=== PATIENT | female | born 1975 | race Caucasian/White ===

== ENCOUNTER 2018-08-19 11:20 | Emergency (ER) | payer OTHER, SELFPAY ==
[2018-08-19 11:24] VITALS: BP 122/85; PULSE 91; RESP 20; TEMP 36.8; O2SAT 99; BMI 31.9
--- NOTE | 2018-08-19 12:14 | ED.WOUNDLAC ---
HPI - Wound/Laceration <FRAN Dumas - Last Filed: 08/19/18 13:31> General Chief Complaint: Wound/Laceration Stated Complaint: CUT RIGHT THUMB Time Seen by Provider: 08/19/18 12:06 Source: patient Mode of arrival: ambulatory Limitations: no limitations History of Present Illness HPI narrative: Patient is a 42-year-old female nonsmoker with a history of hypothyroidism who presents with the chief complaint of a laceration to her right thumb. She was cutting with a [employer] cutter and sliced part of her thumb. She states that she is not sure if there is anything to suture, as she ?took a scoop out.? She does not know when her last tetanus was. She states she has full range of motion with the right thumb. She flushed it out with water after happened. Patient is right-hand dominant. Extremity Location: Left: arm Related Data Previous Rx's Medication Instructions Recorded escitalopram 10 mg tablet 10 mg PO QDAY #90 tab 04/23/18 levothyroxine 88 mcg tablet 88 mcg PO QAM #90 tab-cap 04/23/18 Allergies Allergy/AdvReac Type Severity Reaction Status Date / Time No Known Allergies Allergy Uncoded 08/19/18 11:29 Review of Systems <FRAN Dumas - Last Filed: 08/19/18 13:31> Review of Systems GENERAL: Denies chills, fatigue, malaise, fever, sweats. HEENT: Denies sinus pain, ear pain, sore throat, difficulty swallowing, dizziness. RESPIRATORY: Denies dyspnea, cough, wheezing, hemoptysis, sputum. CARDIOVASCULAR: Denies chest pain, palpitations, orthopnea, edema, GASTROINTESTINAL: Denies nausea, vomiting, abdominal pain, diarrhea, constipation, melena. : Denies dysuria, frequency, incontinence, hematuria, urinary retention. MUSCULOSKELETAL: denies weakness, joint pain, or bony pain SKIN: See HPI NEUROLOGIC: Denies weakness, headache, numbness, change in speech, confusion, seizures, incoordination. PSYCHIATRIC: No concerning psychosocial issues. 12 point review of systems is negative except for those stated above Exam <THOMAS Dumas - Last Filed: 08/19/18 13:31> Narrative Exam Narrative: GENERAL: This is a well-nourished, well-developed patient, no acute distress HEAD: Atraumatic. Normocephalic. No temporal or scalp tenderness. EYES: Pupils equal round and reactive. Extraocular motions intact. No scleral icterus. No injection or drainage. ENT: Nose without bleeding, purulent drainage or septal hematoma. Throat without erythema, tonsillar hypertrophy or exudate. Uvula midline. Airway patent. NECK: Trachea midline. No JVD or lymphadenopathy. Supple, nontender, no meningeal signs. CARDIOVASCULAR: Regular rate and rhythm without murmurs, gallops, or rubs. RESPIRATORY: Clear to auscultation. Breath sounds equal bilaterally. No wheezes, rales, or rhonchi. GASTROINTESTINAL: Abdomen soft, non-tender, nondistended. No hepato-splenomegaly, or palpable masses. No guarding. EXTREMITIES: Full range of motion of right hand. Capillary refill less than 2 sec right thumb. Pulse motor sensory intact rhythm. BACK: Nontender without deformity or crepitance. No flank tenderness. NEURO: AOx3. SKIN: 0.25 cm avulsion to tip of right thumb. No nail involvement. Bleeding is controlled. Initial Vital Signs Initial Vital Signs: Vital Signs Temperature 98.3 F 08/19/18 11:24 Pulse Rate 91 H 08/19/18 11:24 Respiratory Rate 20 08/19/18 11:24 Blood Pressure 122/85 08/19/18 11:24 Pulse Oximetry 99 08/19/18 11:24 <Sobeida Isaac DO - Last Filed: 08/20/18 07:36> Initial Vital Signs Initial Vital Signs: Vital Signs Temperature 98.3 F 08/19/18 11:24 Pulse Rate 91 H 08/19/18 11:24 Respiratory Rate 20 08/19/18 11:24 Blood Pressure 122/85 08/19/18 11:24 Pulse Oximetry 99 08/19/18 11:24 Procedures <FRAN Dumas - Last Filed: 08/19/18 13:31> Laceration Repair Laceration 1: Site: upper extremity Side (If applicable): right Size (cm): 0.25 Description: other (avulsion) Depth: simple, single layer Pre-repair: wound explored, irrigated extensively and deep structures intact Skin layer closed with: other (surgicel and pressure dressing ) Course <THOMAS DumasBC - Last Filed: 08/19/18 13:31> Orders Ordered: Discontinued Medications Diphtheria/Tetanus/Acell Pertussis (Adacel) 0.5 ml IM .ONCE ONE Stop: 08/19/18 12:14 Last Admin: 08/19/18 12:46 Dose: 0.5 ml Ketorolac Tromethamine (Toradol) 60 mg IM NOW ONE Stop: 08/19/18 12:14 Last Admin: 08/19/18 12:47 Dose: 60 mg Vital Signs - 8 hr 08/19/18 11:24 08/19/18 13:07 Temperature 98.3 F Pulse Rate 91 H 69 Respiratory Rate 20 16 Blood Pressure 122/85 Blood Pressure [Left Arm] 127/91 H Pulse Oximetry 99 98 <Sobeida Isaac DO - Last Filed: 08/20/18 07:36> Orders Ordered: Discontinued Medications Diphtheria/Tetanus/Acell Pertussis (Adacel) 0.5 ml IM .ONCE ONE Stop: 08/19/18 12:14 Last Admin: 08/19/18 12:46 Dose: 0.5 ml Ketorolac Tromethamine (Toradol) 60 mg IM NOW ONE Stop: 08/19/18 12:14 Last Admin: 08/19/18 12:47 Dose: 60 mg Vital Signs - 8 hr 08/19/18 11:24 08/19/18 13:07 Temperature 98.3 F Pulse Rate 91 H 69 Respiratory Rate 20 16 Blood Pressure 122/85 Blood Pressure [Left Arm] 127/91 H Pulse Oximetry 99 98 MDM - Wound/Laceration <SHANIKA Dumas-BC - Last Filed: 08/19/18 13:31> MDM Narrative Medical decision making narrative: Patient presents with a chief complaint of a laceration to her right thumb. She did not know when her last tetanus was, so her tetanus was updated accordingly. The wound was cleansed with Hibiclens and water. Given the avulsion nature of the wound, I was not able to perform a closure. However bleeding was controlled and the wound was closed with Surgicel and a pressure dressing. Discussed at length with patient return precautions, monitor for circulation thumb as well as monitoring for signs of infection including redness pus etc. Patient had no questions or concerns upon discharge. Discharge Plan Departure Patient Disposition: Home Clinical Impression: Avulsion of skin Discharge Date/Time: 08/19/18 13:07 Interventions: ED Discharge Assessment Last Done: 08/19/18 13:06 Instructions: DI for Avulsion Laceration (Not Requiring Sutures), DI for Minor Laceration Activity Restrictions/Additional Instructions: Please monitor your wound for signs and symptoms of infection including redness, pus and fever. Please follow-up if any of these occur. Please do not submerge her hand in dirty water, pool water disorder etc as this increases her chance of infection. Please loosen the pressure wrap if your finger becomes cold in be evaluated immediately if you have any concerns about circulation. Prescriptions: No Action escitalopram oxalate [Lexapro] 10 mg tablet 10 mg PO QDAY Qty: 90 RF: 3 levothyroxine 88 mcg tablet 88 mcg PO QAM Qty: 90 RF: 1 Referrals: Juli Benavides ARNP [Primary Care Provider] - <Sobeida Isaac DO - Last Filed: 08/20/18 07:36> Cosign ED Attending Rosy Attestation: I was immediately available in the department for consultation. Documentation has been reviewed. I agree with assessment and plan.
--- NOTE | 2018-08-19 12:18 | ED_ITS ---
HPI - Wound/Laceration <FRAN Dumas - Last Filed: 08/19/18 13:31> General Chief Complaint: Wound/Laceration Stated Complaint: CUT RIGHT THUMB Time Seen by Provider: 08/19/18 12:06 Source: patient Mode of arrival: ambulatory Limitations: no limitations History of Present Illness HPI narrative: Patient is a 42-year-old female nonsmoker with a history of hypothyroidism who presents with the chief complaint of a laceration to her right thumb. She was cutting with a [employer] cutter and sliced part of her thumb. She states that she is not sure if there is anything to suture, as she ? took a scoop out.? She does not know when her last tetanus was. She states she has full range of motion with the right thumb. She flushed it out with water after happened. Patient is right-hand dominant. Extremity Location: Left: arm Related Data Previous Rx's Medication Instructions Recorded escitalopram 10 mg tablet 10 mg PO QDAY #90 tab 04/23/18 levothyroxine 88 mcg tablet 88 mcg PO QAM #90 tab-cap 04/23/18 Allergies Allergy/AdvReac Type Severity Reaction Status Date / Time No Known Allergies Allergy Uncoded 08/19/18 11:29 Review of Systems <FRAN Dumas - Last Filed: 08/19/18 13:31> Review of Systems GENERAL: Denies chills, fatigue, malaise, fever, sweats. HEENT: Denies sinus pain, ear pain, sore throat, difficulty swallowing, dizziness. RESPIRATORY: Denies dyspnea, cough, wheezing, hemoptysis, sputum. CARDIOVASCULAR: Denies chest pain, palpitations, orthopnea, edema, GASTROINTESTINAL: Denies nausea, vomiting, abdominal pain, diarrhea, constipation, melena. : Denies dysuria, frequency, incontinence, hematuria, urinary retention. MUSCULOSKELETAL: denies weakness, joint pain, or bony pain SKIN: See HPI NEUROLOGIC: Denies weakness, headache, numbness, change in speech, confusion, seizures, incoordination. PSYCHIATRIC: No concerning psychosocial issues. 12 point review of systems is negative except for those stated above Exam <THOMAS Dumas - Last Filed: 08/19/18 13:31> Narrative Exam Narrative: GENERAL: This is a well-nourished, well-developed patient, no acute distress HEAD: Atraumatic. Normocephalic. No temporal or scalp tenderness. EYES: Pupils equal round and reactive. Extraocular motions intact. No scleral icterus. No injection or drainage. ENT: Nose without bleeding, purulent drainage or septal hematoma. Throat without erythema, tonsillar hypertrophy or exudate. Uvula midline. Airway patent. NECK: Trachea midline. No JVD or lymphadenopathy. Supple, nontender, no meningeal signs. CARDIOVASCULAR: Regular rate and rhythm without murmurs, gallops, or rubs. RESPIRATORY: Clear to auscultation. Breath sounds equal bilaterally. No wheezes , rales, or rhonchi. GASTROINTESTINAL: Abdomen soft, non-tender, nondistended. No hepato-splenomegaly , or palpable masses. No guarding. EXTREMITIES: Full range of motion of right hand. Capillary refill less than 2 sec right thumb. Pulse motor sensory intact rhythm. BACK: Nontender without deformity or crepitance. No flank tenderness. NEURO: AOx3. SKIN: 0.25 cm avulsion to tip of right thumb. No nail involvement. Bleeding is controlled. Initial Vital Signs Initial Vital Signs: Vital Signs Temperature 98.3 F 08/19/18 11:24 Pulse Rate 91 H 08/19/18 11:24 Respiratory Rate 20 08/19/18 11:24 Blood Pressure 122/85 08/19/18 11:24 Pulse Oximetry 99 08/19/18 11:24 <Sobeida Isaac DO - Last Filed: 08/20/18 07:36> Initial Vital Signs Initial Vital Signs: Vital Signs Temperature 98.3 F 08/19/18 11:24 Pulse Rate 91 H 08/19/18 11:24 Respiratory Rate 20 08/19/18 11:24 Blood Pressure 122/85 08/19/18 11:24 Pulse Oximetry 99 08/19/18 11:24 Procedures <FRAN Dumas - Last Filed: 08/19/18 13:31> Laceration Repair Laceration 1: Site: upper extremity Side (If applicable): right Size (cm): 0.25 Description: other (avulsion) Depth: simple, single layer Pre-repair: wound explored, irrigated extensively and deep structures intact Skin layer closed with: other (surgicel and pressure dressing ) Course <THOMAS DumasBC - Last Filed: 08/19/18 13:31> Orders Ordered: Discontinued Medications Diphtheria/Tetanus/Acell Pertussis (Adacel) 0.5 ml IM .ONCE ONE Stop: 08/19/18 12:14 Last Admin: 08/19/18 12:46 Dose: 0.5 ml Ketorolac Tromethamine (Toradol) 60 mg IM NOW ONE Stop: 08/19/18 12:14 Last Admin: 08/19/18 12:47 Dose: 60 mg Vital Signs - 8 hr 08/19/18 11:24 08/19/18 13:07 Temperature 98.3 F Pulse Rate 91 H 69 Respiratory Rate 20 16 Blood Pressure 122/85 Blood Pressure [Left Arm] 127/91 H Pulse Oximetry 99 98 <Sobeida Isaac DO - Last Filed: 08/20/18 07:36> Orders Ordered: Discontinued Medications Diphtheria/Tetanus/Acell Pertussis (Adacel) 0.5 ml IM .ONCE ONE Stop: 08/19/18 12:14 Last Admin: 08/19/18 12:46 Dose: 0.5 ml Ketorolac Tromethamine (Toradol) 60 mg IM NOW ONE Stop: 08/19/18 12:14 Last Admin: 08/19/18 12:47 Dose: 60 mg Vital Signs - 8 hr 08/19/18 11:24 08/19/18 13:07 Temperature 98.3 F Pulse Rate 91 H 69 Respiratory Rate 20 16 Blood Pressure 122/85 Blood Pressure [Left Arm] 127/91 H Pulse Oximetry 99 98 MDM - Wound/Laceration <SHANIKA Dumas-BC - Last Filed: 08/19/18 13:31> MDM Narrative Medical decision making narrative: Patient presents with a chief complaint of a laceration to her right thumb. She did not know when her last tetanus was, so her tetanus was updated accordingly. The wound was cleansed with Hibiclens and water. Given the avulsion nature of the wound, I was not able to perform a closure. However bleeding was controlled and the wound was closed with Surgicel and a pressure dressing. Discussed at length with patient return precautions, monitor for circulation thumb as well as monitoring for signs of infection including redness pus etc. Patient had no questions or concerns upon discharge. Discharge Plan Departure Patient Disposition: Home Clinical Impression: Avulsion of skin Discharge Date/Time: 08/19/18 13:07 Interventions: ED Discharge Assessment Last Done: 08/19/18 13:06 Instructions: DI for Avulsion Laceration (Not Requiring Sutures), DI for Minor Laceration Activity Restrictions/Additional Instructions: Please monitor your wound for signs and symptoms of infection including redness , pus and fever. Please follow-up if any of these occur. Please do not submerge her hand in dirty water, pool water disorder etc as this increases her chance of infection. Please loosen the pressure wrap if your finger becomes cold in be evaluated immediately if you have any concerns about circulation. Prescriptions: No Action escitalopram oxalate [Lexapro] 10 mg tablet 10 mg PO QDAY Qty: 90 RF: 3 levothyroxine 88 mcg tablet 88 mcg PO QAM Qty: 90 RF: 1 Referrals: Juli Benavides ARNP [Primary Care Provider] - <Sobeida Isaac DO - Last Filed: 08/20/18 07:36> Cosign ED Attending Rosy Attestation: I was immediately available in the department for consultation. Documentation has been reviewed. I agree with assessment and plan.
[2018-08-19] MEDS: TET,DIPH,PERTUSS(ACELL),VAC/PF 0.5 ML SYRINGE IM (12:46)
[2018-08-19] MEDS: KETOROLAC 60 MG/2 ML VIAL IM (12:47)
[2018-08-19 13:07] VITALS: BP 127/91; PULSE 69; RESP 16; O2SAT 98
== END 2018-08-19 13:07 | disposition home or self-care (01) ==
PROVIDERS: Emergency Provider Nurse Practitioner Family; PCP Internal Medicine
DX: S61.011A Laceration without foreign body of right thumb without damage to nail, initial encounter (principal); W26.8XXA Contact with other sharp object(s), not elsewhere classified, initial encounter
CPT/HCPCS: 90471; 96372; 99283; 90715; J1885

== ENCOUNTER 2019-10-28 14:55 | Emergency (ER) | payer OTHER, SELFPAY ==
[2019-10-28 15:04] VITALS: BP 119/78; PULSE 109; RESP 20; TEMP 36.8; O2SAT 98
--- NOTE | 2019-10-28 15:13 | DI.US.S_ITS ---
PROCEDURE: US PERIPH VENOUS LOW EXTREM LT INDICATIONS: LEFT LOWER EXTREMITY EDEMA TECHNIQUE: Real-time imaging, as well as color and pulse Doppler interrogation, were performed of the lower extremity deep veins from the inguinal ligament to the popliteal fossa. COMPARISON: None. FINDINGS: The common femoral, femoral and popliteal veins are normally compressible, and free of intraluminal thrombus. Color and pulse Doppler demonstrate normal phasic intraluminal flow. There is normal augmentation response to distal compression maneuver. IMPRESSION: No evidence of left lower extremity deep vein thrombosis. Dictated by: Stevie White M.D. on 10/28/2019 at 15:41 Approved by: Stevie White M.D. on 10/28/2019 at 15:42
--- NOTE | 2019-10-28 15:18 | ED_ITS ---
HPI - Extremity Injury (Lower) <NERY Blanca - Last Filed: 10/28/19 20:38> General Chief Complaint: Extremity Injury, Lower Stated Complaint: States fx left knee, thinks has a blood clot now Time Seen by Provider: 10/28/19 15:01 Source: patient Mode of arrival: Wheelchair History of Present Illness HPI Narrative: 43yo female presents emergency department complaining of left calf pain for the past 24 hours. Patient states she fell 5 days ago and fractured her left patella. She is supposed to have surgery next week. However, she has had decreased movement throughout the past few days due to pain, she noticed increased swelling in her calf is worried about a blood clot. Patient states the pain is a dull aching 4/10 notice slightly worse with palpation. She also noted that she had a fever of 100F today, temperature was taken orally, which she was unsure if this was due to sitting in the sun. She denies any history of blood clots, not currently taking any blood thinners. Patient has been seen by Dr. Barrett. She denies any cough, rhinorrhea, sore throat, ear pain, chest pain, shortness of breath, nausea, vomiting, diarrhea, abdominal pain, dizziness, lacerations, or other concerns. Related Data Home Medications Medication Instructions Recorded Confirmed escitalopram oxalate [Lexapro] 10 mg PO QPM 10/28/19 10/28/19 hydromorphone 2 mg PO Q4-6H PRN 10/28/19 10/28/19 Previous Rx's Medication Instructions Recorded levothyroxine 88 mcg tablet 88 mcg PO QAM #90 tab-cap 04/23/18 Allergies Allergy/AdvReac Type Severity Reaction Status Date / Time No Known Drug Allergies Allergy Verified 10/28/19 15:43 Review of Systems <NERY Blanca - Last Filed: 10/28/19 20:38> Review of Systems Narrative: REVIEW OF SYSTEMS: GENERAL: Denies chills. HENT: No head trauma. EYES: No double vision or vision loss. CARDIOVASCULAR: No chest pain or syncope. RESPIRATORY: No shortness of breath or cough. GASTROINTESTINAL: No nausea, vomiting, diarrhea, or constipation. MUSCULOSKELETAL: Complains of left calf pain, see HPI. INTEGUMENTARY: No rash, lesions, or pruritus. NEURO: No numbness, tingling. PSYCH: No behavior or mood changes. Patient History <NERY Blanca - Last Filed: 10/28/19 20:38> Medical History Acne (Chronic ~1989) Anemia (Chronic) Chicken pox (Resolved ~1981) Eczema (Chronic ~1975) Hypothyroidism (Chronic) Family History Father Age: 67 Morbid obesity Hypertension Grandmother Hypertension Mother Age: 67 High cholesterol Hypothyroidism Grandfather Stroke Social History Smoking Status: Never smoker alcohol intake: current Smoking Status: Never smoker alcohol intake frequency: a few times a month Substance Use Type: does not use Exam <NERY Blanca - Last Filed: 10/28/19 20:38> Initial Vital Signs Initial Vital Signs: Vital Signs Temperature 98.2 F 10/28/19 15:04 Pulse Rate 109 H 10/28/19 15:04 Respiratory Rate 20 10/28/19 15:04 Blood Pressure 119/78 10/28/19 15:04 Pulse Oximetry 98 10/28/19 15:04 PHYSICAL EXAMINATION: GENERAL: Well groomed, alert, and cooperative. Answers questions promptly and appropriately. Vital signs noted. HENT: Normocephalic, atraumatic. EYES: Symmetrical, sclera white, no periorbital swelling. CARDIOVASCULAR: S1 and S2 sounds normal. Regular rate and rhythm, no murmurs, clicks, or bruits. No pedal edema. RESPIRATORY: Normal respiratory rate, trachea midline, airway patent. No stridor, nasal flaring or accessory muscle use. Lungs are clear in all vasquez. MUSCULOSKELETAL: Deep purple ecchymosis noted to left patellar region, slight tenderness with palpation of left calf, compartments soft. Pedal pulses 2+ and intact bilaterally, cap refill to left toes <2 seconds. No pain with flexion of foot. Normal gait and coordination. Equal tone and mass bilaterally. EXTREMITIES: CMS intact. SKIN: Warm, dry, soft, appropriate color for ethnicity. No lesions, rashes, or wounds. NEURO: Alert and Oriented X 3. No sensory deficits. PSYCH: Appropriate affect and mood. <DO Eleni Castro Last Filed: 10/29/19 07:03> Initial Vital Signs Initial Vital Signs: Vital Signs Temperature 98.2 F 10/28/19 15:04 Pulse Rate 109 H 10/28/19 15:04 Respiratory Rate 20 10/28/19 15:04 Blood Pressure 119/78 10/28/19 15:04 Pulse Oximetry 98 10/28/19 15:04 Course <NERY Blanca - Last Filed: 10/28/19 20:38> Course Course Narrative: Patient reported decreased pain throughout the emergency department stay. Orders Ordered: ED Orders 10/28/19 15:13 US periph venous low extrem lt Stat 10/28/19 15:48 D Dimer Stat Vital Signs Vital signs: Vital Signs - 8 hr 10/28/19 15:04 10/28/19 16:25 Temperature 98.2 F Pulse Rate 109 H 89 Respiratory Rate 20 19 Blood Pressure 119/78 Blood Pressure [Left Arm] 128/77 Pulse Oximetry 98 100 <Aaron Sung DO - Last Filed: 10/29/19 07:03> Orders Ordered: ED Orders 10/28/19 15:13 US perip venous low extrem lt Stat 10/28/19 15:48 D Dimer Stat Vital Signs Vital signs: Vital Signs - 8 hr 10/28/19 15:04 10/28/19 16:25 Temperature 98.2 F Pulse Rate 109 H 89 Respiratory Rate 20 19 Blood Pressure 119/78 Blood Pressure [Left Arm] 128/77 Pulse Oximetry 98 100 MDM - Extremity Injury (Lower) <NERY Blanca - Last Filed: 10/28/19 20:38> Medical Records Attestation: I reviewed the patient's medical records. Lab Data Attestation: I reviewed the patient's lab results. Labs: Lab Results 10/28/19 Range/Units 15:48 D-Dimer 1910 H (<230) ng/mL Imaging Data US - DVT: Radiologist's Impression: [address] [address] Ultrasound Report Signed Patient: Malinda Camara KMR#: [id number] : 1975Acct:[id number] Age/Sex: 43 / FDate of Service: 10/28/19 Loc: ED Accession Number: [id number] Procedure: US periph venous low extrem lt Ordering Provider: Nilsa Garza PROCEDURE: PERIP VENOUS LOW EXTREM LT INDICATIONS: LEFT LOWER EXTREMITY EDEMA TECHNIQUE: Real-time imaging, as well as color and pulse Doppler interrogation, were performed of the lower extremity deep veins from the inguinal ligament to the popliteal fossa. COMPARISON: None. FINDINGS: The common femoral, femoral and popliteal veins are normally compressible, and free of intraluminal thrombus. Color and pulse Doppler demonstrate normal phasic intraluminal flow. There is normal augmentation response to distal compression maneuver. IMPRESSION: No evidence of left lower extremity deep vein thrombosis. Dictated by: Stevie White M.D. on 10/28/2019 at 15:41 Approved by: Stevie White M.D. on 10/28/2019 at 15:42 [facility] Narrative Medical decision making narrative: 43-year-old female presenting to the emergency department for left calf swelling and pain after a diagnosis of a patella fracture 5 days ago. Patient had mild calf tenderness and no blood bruising to her left knee. Less likely DVT due to negative ultrasound. Less likely compartment syndrome as calf was soft, she had full range of motion of her foot, and pain was mild on examination. Patient was encouraged to follow up with her orthopedic as planned. She was encouraged to follow up with her [facility] provider in 1-2 weeks for further evaluation if she is still having pain as well. Strict return precautions were given for new and worsening symptoms such as increasing pain, shortness of breath, chest pain, and except drip. Patient agrees with plan of care verbalized understanding. She was encouraged to continue moving her leg and calf and elevate her leg throughout the day help with fluid return. <Aaron Sung, DO - Last Filed: 10/29/19 07:03> Lab Data Labs: Lab Results 10/28/19 Range/Units 15:48 D-Dimer 1910 H (<230) ng/mL Discharge Plan Departure Patient Disposition: Home Clinical Impression: Calf pain Qualifiers: Laterality: left Qualified Code(s): M79.662 - Pain in left lower leg Discharge Date/Time: 10/28/19 17:10 Activity Restrictions/Additional Instructions: Thank you for entrusting me with your care today. As discussed, your ultrasound is negative for a blood clot. I recommend continuing to move your calf every hour to help prevent blood clots. Please communicate this to your surgeon and primary care provider. Follow-up in 1-2 weeks with your primary care provider for re-evaluation. Return emergency department for any new or worsening symptoms such as chest pain, shortness of breath, severe pain in her left leg, for swelling in your left calf, abdominal pain, or any other concerns. Prescriptions: No Action levothyroxine 88 mcg tablet 88 mcg PO QAM Qty: 90 RF: 1 hydromorphone 2 mg tablet 2 mg PO Q4-6H PRN (Reason: pain) RF: 0 escitalopram oxalate [Lexapro] 10 mg tablet 10 mg PO QPM RF: 0 Referrals: Juli Benavides ARNP [Primary Care Provider] - <Aaron Sung DO - Last Filed: 10/29/19 07:03> Sign Out Provider Sign Out Attestation: Dr Sung Co-Sign Statement: I was available for consultation during this patient's emergency department visit. This chart is signed by myself for administrative purposes only. I did not have direct contact with this patient during this visit. They were seen independently by the APC.
[2019-10-28 16:25] VITALS: BP 128/77; PULSE 89; RESP 19; O2SAT 100
[2019-10-28 16:31] LABS: D Dimer 1910 ng/mL (<230)
== END 2019-10-28 17:10 | disposition home or self-care (01) ==
PROVIDERS: Emergency Provider Nurse Practitioner; PCP Internal Medicine
DX: M79.662 Pain in left lower leg (principal)
CPT/HCPCS: 36415; 85379; 93971; 99283

== ENCOUNTER 2019-10-30 05:50 | Day surgery (SDC) | payer OTHER, SELFPAY ==
[2019-10-28 08:44] VITALS: BMI 35.4
[2019-10-30] VITALS (12 sets, daily range): BP systolic 115–148; BP diastolic 69–89; PULSE 84–107; RESP 9–38; TEMP 36.3–37; O2SAT 93–97; BMI 35.6
--- NOTE | 2019-10-30 | DI.RAD.S_ITS ---
PROCEDURE: XR KNEE LT 1TO2V INDICATIONS: ORIF LEFT PATELLA TECHNIQUE: 4 views of the knee were acquired. COMPARISON: None. FINDINGS: Spot fluoroscopic images demonstrating internal fixation of the patella. Dictated by: Marky Marrero M.D. on 10/30/2019 at 11:36 Approved by: Marky Marrero M.D. on 10/30/2019 at 11:37
--- NOTE | 2019-10-30 06:58 | PM.PREOP ---
Pre-operative Note Interval Note History & Physical reviewed/Exam performed by Physician: Yes Changes to H&P: Yes H&P completed within 30 days and has changed as indicated here:: had duplex for swelling-- neg for dvt
[2019-10-30] MEDS: LACTATED RINGERS 1,000 ML 42 ML IV ×2 (07:30→09:01)
[2019-10-30] MEDS: CEFAZOLIN 2 GM/100 ML FROZ.PIGGY IV (08:02)
--- NOTE | 2019-10-30 08:03 | SUR.PREOP ---
Block start time [0743] . Monitoring initiated and maintained throughout procedure. Oxygen and medications given per anesthesiologist instructions. Patient remained stable throughout procedure, no adverse reactions noted. Block end time [0757]. pt eyes closed during procedure, easily arousable to voice when spoken to. Pt taken directly into the OR after completion of the block in stable condition, vss.
--- NOTE | 2019-10-30 08:37 | SUR.OPER ---
Supine on padded OR bed, head on pillow, arms secured on padded arm boards at <90 degrees abduction, legs uncrossed, safety belt across lower abdomen,bump to left hip, placed by .Tape over blanket over non-operative leg.
[2019-10-30] MEDS: BUPIVACAINE 0.25% W/ EPI 30 ML VIAL INJ (08:52)
--- NOTE | 2019-10-30 08:58 | P.PCN_ITS ---
Procedures Date/Time Date of procedure: 10/30/19 Time of procedure: 07:45 General Procedure description: Ultrasound guided femoral nerve block for post op pain control after Left Patellar ORIF by Dr. Barrett. Risk and benefits of procedure discussed with patient. ASA monitoring applied to patient. O2 given via nasal cannula. 2 mg Versed and 50 mcg fentanyl given for procedural sedation. Inguinal skin site was prepped with chlorhexidine and allowed to fully dry. Sterile gloves, mask, hat and probe cover were used to maintain sterility. 2% lidocaine and 30ga needle was used to make a small skin wheal at needle insertion site. Under ultrasound guidance, a 21ga 100mm Pajunk needle was directed into the inguinal canal near femoral artery,vein and nerve. Electrical stimulation at 0.2 mA was used to confirm femoral nerve stimulation, +quads twitch response. Patient reported no parasthesias. After negative aspiration, 20 mL 0.5% ropiv icaine and 10mg dexamethasone were injected around femoral nerve. Patient tolerated procedure well.
[2019-10-30] MEDS: OXYCODONE IR 5 MG TABLET PO (10:24)
--- NOTE | 2019-10-30 10:24 | PM.OP.1 ---
Operative Date/Time/Diagnoses Date of procedure: 10/30/19 Time of procedure: 08:00 Pre-op diagnosis: Left displaced patella fracture closed Morbid obesity BMI 35.6 Post-op diagnosis: same Procedure & Clinicians Procedure: 1. Open reduction internal fixation left patella fracture CPT code 85408 Same procedure as scheduled: Yes Indications: Patient is a 43-year-old female that fell directly on her left knee several days ago while out of town. She sustained a closed transverse patella fracture with some distal comminution. Her extensor mechanism was disrupted. She was seen and evaluated in a out of town ER placed in a knee immobilizer and followed up locally. She has been indicated for open reduction internal fixation to restore her extensor mechanism. The risks and benefits of the procedure have been discussed with the patient even opportunity to ask questions. The risks of surgery include but are not limited to infection, malunion, nonunion, persistence of pain, damage to nerves and blood vessels, posttraumatic arthritis, DVT, PE, cardiopulmonary complications and . The patient expressed a thorough understanding of the risks and benefits of surgery and has elected to proceed. Consent was signed in the office. Surgeon: Gabriela Barrett Click Yes if Unassisted: Yes Anesthesia Type: General, Peripheral nerve block and Local Operative Notes Findings: Transverse patella fracture with disruption of the medial and lateral retinacula. Additional there is a small comminution of the distal fracture piece with intact periosteum. The fracture was irrigated reduced. Manual palpation of the undersurface of the patella demonstrated smooth surface. The fracture was fixed with blunt-tipped cannulated screws from the Arthrex patella fracture set and a cerclage suture tape was placed. Additionally a separate suture tapes a clot was placed around the world and the retinaculum were repaired with 2. FiberWire. The knee was taken through range of motion without gapping. Closure Type: primary Specimen(s): none sent Prosthetic devices, grafts, tissues, transplants, or devices: 4.0 Arthrex blunt-tipped cannulated screws and suture tape Applied: other (Knee immobilizer) Estimated Blood Loss (mL): 30 Blood products transfused: none Tourniquet time (min): 60 Procedure in detail: Patient was seen in the preoperative area the site of surgery was marked and informed consent confirmed. The patient was then brought back to the operating room by the anesthesia team. The patient had a preoperative femoral nerve block placed for postoperative pain control. Patient was placed supine on the operative table general anesthesia was administered. A well-padded thigh tourniquet was placed. An SCD was placed on the contralateral lower extremity. The left lower extremities prepped and draped in the standard sterile fashion. A formal time-out procedure was performed confirming the patient's side and site of surgery administration of preoperative antibiotics and presence of informed consent and implants. All were in agreement. An Esmarch was utilized for exsanguination the tourniquet elevated to 250 mm of mercury and stayed there for 60 minutes. A midline incision was taken down through the skin subcutaneous tissue directly over the knee. This came directly down on the transverse patella fracture. The hematoma was evacuated. The fracture site was cleared and the joint was washed out. Joint surface below was inspected and intact. The large fracture fragments were then reduced and held with clamps. Was noted that the comminution at the distal fragment was held in place well with soft tissues and did not require separate fixation. Next the guidewires for the cannulated screws were placed. These were checked on AP and lateral fluoroscopy. These were then over drilled and the blunt tip cannulated screws placed. Next a FiberTape was passed through in the cerclage fashion and tied proximally. This secured the fracture nicely. In addition a around the world cerclage fiber tape remain it was woven using the free needle for additional fixation. At this point the small cuts in the quad tendon to access the wires were repaired with 2. FiberWire as well as the retinacula were repaired with 2. FiberWire. The knee was taken through range of motion no gapping was noted. Final x-rays were taken confirming reduction and fixation AP lateral planes. Again before the retinacular was finding close the bottom surface of the patella was palpated and this was smooth. Tourniquet was released hemostasis was achieved. Wound was irrigated and closed with 0 Vicryl 2 O Vicryl and dakotah in the skin approximately 20 cc of 0.25% Marcaine with epinephrine was used for local anesthetic. Aquacel dressing was placed. Brendan wraps were placed the patient was placed back into the knee immobilizer. Patient was woken from anesthesia and taken to recovery room in good condition. There no immediate complications from this procedure. Complications: none Post-operative Condition: stable Disposition: PACU Plan for aftercare: Weightbear as tolerated in knee immobilizer with knee in extension at all times. Ice if needed may take down and the wraps and shower with the Aquacel dressing in place. But no bending of the knee. Take pain medications as needed. Start aspirin 325 mg daily on postop day 1 for DVT prophylaxis. Will return to clinic in 10-14 days for staple removal. At that time knee immobilizer will come off and she will go into a hinged knee brace. This will be locked in extension for weight-bearing but may be open from 0-30 degrees for beginning of active range of motion active assisted range of motion and passive range of motion with a physical therapy prescription. Please see the full physical therapy protocol at the bottom of the plan in the H&P. In general, at 2 weeks postop will be transitioned to a hinged knee brace 0-30 degrees with physical therapy must be locked in extension for weight-bearing. Then will advance 15? each week with physical therapy. While knee brace will remain locked in full extension for weight-bearing until 6 weeks postop. After 2 weeks may remove the knee brace at night but again must be locked in extension for weight-bearing until 6 weeks postop.
[2019-10-30] MEDS: fentaNYL 100 MCG/2 ML INJ 50 MCG IV (10:29)
[2019-10-30] MEDS: fentaNYL 100 MCG/2 ML INJ IV (10:43)
--- NOTE | 2019-10-30 12:31 | SUR.PHASEII ---
patient has crutches/walker, reviewed need to continued to use today until nerve block fully resolved.
== END 2019-10-30 12:39 | disposition home or self-care (01) ==
PROVIDERS: PCP Internal Medicine; Referring Provider Orthopaedic Surgery Foot and Ankle Surgery; Visit Provider Orthopaedic Surgery Foot and Ankle Surgery
PROC: (CPT 27524; principal; 2019-10-30 07:45)
DX: S82.032A Displaced transverse fracture of left patella, initial encounter for closed fracture (principal); W19.XXXA Unspecified fall, initial encounter; Y93.9 Activity, unspecified; E66.01 Morbid (severe) obesity due to excess calories; Z68.35 Body mass index [BMI] 35.0-35.9, adult
CPT/HCPCS: 27524; 64450; 73560; 76000; J0690; J1100; J1885; J2250; J2405; J2704; J3010

== ENCOUNTER → 2020-09-01 08:57 | Outpatient (CLI) | payer OTHER, SELFPAY ==
[2020-09-01] MEDS: COVID-19 VACC(MODERNA-1)/PF 100 MCG/0.5 ML VIAL IM (09:07)
== END ==
PROVIDERS: Visit Provider Internal Medicine
DX: Z23 Encounter for immunization (principal)
CPT/HCPCS: 0011A; 91301

== ENCOUNTER → 2020-09-28 09:02 | Outpatient (CLI) | payer OTHER, SELFPAY ==
[2020-09-28] MEDS: COVID-19 VACC #2, MRNA(MOD) 100 MCG/0.5 ML VIAL IM (09:06)
== END ==
PROVIDERS: Visit Provider Internal Medicine
DX: Z23 Encounter for immunization (principal)
CPT/HCPCS: 0012A; 91301

== ENCOUNTER → 2021-06-14 16:44 | Outpatient (CLI) | payer OTHER, SELFPAY ==
[2021-06-14 17:21] LABS: COVID19 -Nasal RAPID Negative (Negative)
== END ==
PROVIDERS: Referring Provider Nurse Practitioner; Visit Provider Nurse Practitioner
DX: Z20.822 Contact with and (suspected) exposure to COVID-19 (principal)
CPT/HCPCS: 87635

== ENCOUNTER → 2021-07-07 10:04 | Outpatient (CLI) | payer OTHER, SELFPAY ==
[2021-07-07] MEDS: COVID-19 VACC #3, MRNA(MOD) 50 MCG/0.25 ML VIAL IM (10:10)
== END ==
PROVIDERS: Referring Provider Internal Medicine; Visit Provider Internal Medicine
DX: Z23 Encounter for immunization (principal)
CPT/HCPCS: 0013A; 91301

== ENCOUNTER → 2022-06-17 09:24 | Outpatient (CLI) | payer OTHER, SELFPAY | PROVIDERS: Visit Provider Nurse Practitioner Family | DX: J02.9 Acute pharyngitis, unspecified (principal) | CPT/HCPCS: 87070 ==

== ENCOUNTER → 2022-06-20 12:39 | Outpatient (CLI) | payer OTHER, SELFPAY ==
--- NOTE | 2022-06-20 12:41 | DI.RAD.S_ITS ---
PROCEDURE: XR CHEST 2V INDICATIONS: Acute cough TECHNIQUE: 2 views of the chest were acquired. COMPARISON: None. FINDINGS: Surgical changes and devices: None. Lungs and pleura: Lungs are clear. No pleural effusions or pneumothorax. Mediastinum: Mediastinal contours are normal. Heart size is normal. Bones and chest wall: No suspicious bony abnormalities. Soft tissues appear unremarkable. IMPRESSION: No acute cardiopulmonary pathology. Dictated by: Boni Bettencourt M.D. on 06/20/2022 at 13:38 Approved by: Boni Bettencourt M.D. on 06/20/2022 at 13:44
== END ==
PROVIDERS: PCP Internal Medicine; Referring Provider Internal Medicine; Visit Provider Internal Medicine
DX: R05.1 Acute cough (principal)
CPT/HCPCS: 71046

== ENCOUNTER → 2022-08-01 14:00 | Outpatient (CLI) | payer OTHER, SELFPAY | PROVIDERS: PCP Internal Medicine; Referring Provider Internal Medicine; Visit Provider Internal Medicine | DX: Z23 Encounter for immunization (principal) | CPT/HCPCS: 90471; 90686 ==

== ENCOUNTER 2023-01-27 23:52 | Emergency (ER) | payer OTHER, SELFPAY ==
[2023-01-28] VITALS: BP 185/88; PULSE 88; RESP 18; TEMP 36.8; O2SAT 98; BMI 34.9
[2023-01-28] MEDS: PROPARACAINE 0.5% OPHTH SOL 1 DROPS EYE-RIGHT (00:05)
[2023-01-28] MEDS: FLUORESCEIN 1 MG STRIP EYE-RIGHT (00:06)
--- NOTE | 2023-01-28 00:19 | ED.EYEPROB ---
HPI - Eye Problem General Chief complaint: Eye Problems Stated complaint: rt eye pain Time Seen by Provider: 01/27/23 23:54 Source: patient Mode of arrival: Family Vehicle History of Present Illness HPI Narrative: 47-year-old female nonsmoker with history of hypothyroid presents the chief complaint of ongoing, if not worsening right eye pain, redness and light sensitivity. She states that she 1st noticed a bit of irritation in her right eye probably on Saturday and then it gradually worsened over and on Saturday she was seen and evaluated at the walk-in clinic. After detailed history and physical exam including the use of proparacaine and fluorescein with the absence of any dye uptake she was treated for a presumptive conjunctivitis and encouraged to follow closely with Ophthalmology on Saturday. She was given return precautions which include presentation to the emergency department for worsening symptoms. She presents today because she has increasing light sensitivity discomfort which is contributing to some mild right-sided headache and vision change. She is been using the medications as directed. She denies any trauma or injury, no known foreign body exposure. She denies other neurologic symptoms such as double vision, trouble with speech, dizziness, extremity numbness, tingling or weakness. She denies new medications otherwise, no dietary change. She does not wear contacts Related Data Home Medications Medication Instructions Recorded Confirmed escitalopram oxalate 10 mg tablet 10 mg PO QPM 10/28/19 01/25/23 (Lexapro) hydromorphone 2 mg tablet 2 mg PO Q4-6H PRN pain 10/28/19 01/25/23 Previous Rx's Medication Instructions Recorded levothyroxine 88 mcg tablet 88 mcg PO QAM #90 tab-caps 04/23/18 benzonatate 100 mg capsule 100 mg PO BID PRN cough #20 caps 06/17/22 erythromycin 5 mg/gram (0.5 %) eye 1 applic EYE-RIGHT QID #3.5 grams 01/25/23 ointment Allergies Allergy/AdvReac Type Severity Reaction Status Date / Time No Known Drug Allergies Allergy Verified 01/25/23 15:53 Review of Systems Review of Systems Narrative: GENERAL: Denies chills, fatigue, malaise, fever, sweats. HEENT: See HPI RESPIRATORY: Denies dyspnea, cough, wheezing, hemoptysis, sputum. CARDIOVASCULAR: Denies chest pain, palpitations, orthopnea, edema, GASTROINTESTINAL: Denies nausea, vomiting, abdominal pain, diarrhea, constipation, melena. : Denies dysuria, frequency, incontinence, hematuria, urinary retention. MUSCULOSKELETAL: denies weakness, joint pain, or bony pain SKIN: Denies rash, skin lesions, or other NEUROLOGIC: Denies weakness, headache, numbness, change in speech, confusion, seizures, incoordination. PSYCHIATRIC: No concerning psychosocial issues. 12 point review of systems is negative except for those stated above Patient History Medical History (Updated 01/28/23 @ 00:27 by Jarad Hendrix DO) Acne (~1989) Anemia Chicken pox (~1981) Eczema (~1975) Hypothyroidism Family History Father Age: 70 Morbid obesity Hypertension Grandmother Hypertension Mother Age: 70 High cholesterol Hypothyroidism Grandfather Stroke Social History household members: spouse Smoking Status: Never smoker alcohol intake: current Smoking Status: Never smoker alcohol intake frequency: a few times a month Substance Use Type: does not use Exam Narrative Exam Narrative: GEN: AOx3 and in mild distress EYES: Pupils are equal, round, and reactive to light and accommodation. Extraoccular muscles are intact bilaterally. Right eye with moderate scleral injection. No dye uptake with fluorescein. No anterior cell and flare on slit-lamp. OD 20/30, OS 20/25, OU 20/25. No hyphema. No hypopyon CHEST: Lungs are clear to auscultation bilaterally and free of wheezes, rales, or rhonchi. Heart rate is regular rhythm, there are no murmurs, clicks, rubs, or gallops. There is no chest wall tenderness. ABD: Abdomen is soft and nontender. There is no guarding or rebound. Bowel sounds are normal in all 4 quadrants. There is no mass or organomegaly. EXT: Full painless ROM of all extremities with no loss of sensation or strength. SKIN: Warm, pink, and dry. No erythema or rash Initial Vital Signs Initial Vital Signs: Vital Signs Temperature 98.3 F 01/28/23 00:00 Pulse Rate 88 01/28/23 00:00 Respiratory Rate 18 01/28/23 00:00 Blood Pressure 185/88 H 01/28/23 00:00 Pulse Oximetry 98 01/28/23 00:00 Oxygen Delivery Method Room Air 01/28/23 00:00 Course Orders Ordered: Discontinued Medications Fluorescein Sodium (Fluorescein 1 Mg Strip) 1 mg EYE-RIGHT NOW ONE Stop: 01/28/23 00:02 Last Admin: 01/28/23 00:06 Dose: 1 mg Documented By: TISHA Proparacaine HCl (Proparacaine 0.5% Ophth Soila) 1 drops EYE-RIGHT NOW ONE Stop: 01/28/23 00:02 Last Admin: 01/28/23 00:05 Dose: 1 drop Documented By: TISHA Vital Signs Vital signs: Vital Signs - 8 hr 01/28/23 00:00 Temperature 98.3 F Pulse Rate 88 Respiratory Rate 18 Blood Pressure 185/88 H Pulse Oximetry 98 Oxygen Delivery Method Room Air MDM - Eye Problem MDM Narrative Medical decision making narrative: [47] year old patient presents with painful right eye with redness, light sensitivity and some minor blurring of vision Multiple etiologies for patient's symptoms considered including, but not limited to: [Acute angle closure glaucoma versus uveitis versus conjunctivitis versus corneal abrasion versus other] Prior Charts reviewed in our EMR Primary Historian: patient Discussed with Dr. Cruz ([facility] [place] [facility] given relatively mild symptoms, 1st occurrence of what sounds like anterior uveitis he recommends against the use of steroids at this time and encourages follow-up with local ophthalmology for complete exam. Patient's symptoms improved some after use of proparacaine but not entirely. She has minimal vision change. Pressure by Apolinar-Pen is 20 mmHg. There is no dye uptake with fluorescein Findings and discharge diagnosis discussed with patient/family followed by verbalization of understanding Return precautions discussed with patient/family whom verbalize understanding of diagnosis and plan Discharge Plan Departure Patient Disposition: Home Clinical Impression: Uveitis Instructions: Anterior Uveitis Activity Restrictions/Additional Instructions: *You have been diagnosed with [uveitis] *What to do: *Please continue to take your regular medications as directed. *Please follow up Dr. Lester or Hieu of [facility] later this morning. Please either call the office or arrived at the office and let them know that you were seen in the emergency department and we would like you seen in follow-up. *Return to Emergency Department if you should have any new, worsening or concerning symptoms, such as [fever greater than 101 F, shaking chills, worsening pain, persistent vomiting or other bothersome symptoms] Prescriptions: No Action benzonatate 100 mg capsule 100 mg PO BID PRN (Reason: cough) Qty: 20 0RF erythromycin 5 mg/gram (0.5 %) ointment 1 applic EYE-RIGHT QID Qty: 3.5 0RF levothyroxine 88 mcg tablet 88 mcg PO QAM Qty: 90 1RF hydromorphone 2 mg tablet 2 mg PO Q4-6H PRN (Reason: pain) Patient Comments: TK 1 T PO Q 4 TO 6 H PRN P escitalopram oxalate [Lexapro] 10 mg tablet 10 mg PO QPM Referrals: Felix Lester MD [Physician] - Jlui Benavides ARNP [Primary Care Provider] - Stand Alone Forms: Patient Portal/API
[2023-01-28 01:08] VITALS: BP 166/81; PULSE 86; RESP 16; O2SAT 99
== END 2023-01-28 01:09 | disposition home or self-care (01) ==
PROVIDERS: Emergency Provider Emergency Medicine; PCP Internal Medicine
DX: H20.9 Unspecified iridocyclitis (principal)
CPT/HCPCS: 99282